=== PATIENT | male | born 1975 | race Caucasian/White ===

== ENCOUNTER 2017-10-26 12:45 | Emergency (ER) | payer SELFPAY ==
[2017-10-26 12:50] VITALS: BP 142/88; PULSE 77; TEMP 98.7; BMI 29.0
--- NOTE | 2017-10-26 12:52 | PDOC ---
History of Present Illness <AlizaBhumi - Last Filed: 10/26/17 16:11> - History of Present Illness Initial Comments: 10/26/17 12:59 Mr. Lozano is a 42 yo male w/ no significant pmh who presents for evaluation of short lived episode of midline sharp, non-radiating chest pain. Patient reports it occurred while he was driving earlier today and lasted for 5-10 seconds. He also developed intermittent nausea with some light headed feeling following this. He reports he did not eat breakfast this morning and attributes his feelings to this. Patient reports strong family history of cardiac problems in mother, father, and uncles and became concerned. He also reports a several month history of intermittent bright red blood on stool and when wiping ( approx. 1x / week). The patient denies shortness of breath and headache. Denies fever, chills, nausea, vomit, diarrhea and constipation. Denies dysuria, frequency, urgency and hematuria. Allergies: NKDA <Sen Gonzales - Last Filed: 10/26/17 17:05> - General Chief Complaint: Chest Pain Stated Complaint: CHEST PAIN Time Seen by Provider: 10/26/17 12:52 Past History <AlizaBhumi - Last Filed: 10/26/17 16:11> - Past Medical History COPD: No - Suicide/Smoking/Psychosocial Hx Smoking History: Current every day smoker Number of Cigarettes Smoked Daily: 20 Information on smoking cessation initiated: No <Sen Gonzales - Last Filed: 10/26/17 17:05> - Past Medical History Allergies/Adverse Reactions: Allergies Allergy/AdvReac Type Severity Reaction Status Date / Time No Known Allergies Allergy Verified 10/26/17 12:50 Review of Systems - Review of Systems Comments:: 10/26/17 12:59 GENERAL/CONSTITUTIONAL: No fever or chills. No weakness. HEAD, EYES, EARS, NOSE AND THROAT: No change in vision. No ear pain or discharge. No sore throat. CARDIOVASCULAR: +Chest pain as described. No SOB. RESPIRATORY: No cough, wheezing, or hemoptysis. GASTROINTESTINAL: +BR Blood on stool as described. Transient nausea, no, vomiting, diarrhea or constipation. GENITOURINARY: No dysuria, frequency, or change in urination. MUSCULOSKELETAL: +Right Upper extremity pain patient reports is chronic. No neck or back pain. SKIN: No rash NEUROLOGIC: No headache, vertigo, loss of consciousness, or change in strength/ sensation. ENDOCRINE: No increased thirst. No abnormal weight change HEMATOLOGIC/LYMPHATIC: No anemia, easy bleeding, or history of blood clots. ALLERGIC/IMMUNOLOGIC: No hives or skin allergy. <Sen Gonzales - Last Filed: 10/26/17 17:05> *Physical Exam - Vital Signs Last Vital Signs Temp Pulse Resp BP Pulse Ox 98.7 F 77 18 142/88 97 10/26/17 12:47 10/26/17 12:47 10/26/17 12:47 10/26/17 12:47 10/26/17 12:47 <Bhumi Abrams - Last Filed: 10/26/17 16:11> - Vital Signs Last Vital Signs Temp Pulse Resp BP Pulse Ox 98.7 F 77 18 142/88 97 10/26/17 12:47 10/26/17 12:47 10/26/17 12:47 10/26/17 12:47 10/26/17 12:47 - Physical Exam Comments: 10/26/17 12:59 GENERAL: Awake, alert, and fully oriented, in no acute distress HEAD: No signs of trauma, normocephalic, atraumatic EYES: PERRLA, EOMI, sclera anicteric, conjunctiva clear ENT: Auricles normal inspection, hearing grossly normal, nares patent, oropharynx clear without exudates. Moist mucosa NECK: Normal ROM, supple, no lymphadenopathy, JVD, or masses LUNGS: +Reproducible TTP in midline chest. No distress, speaks full sentences, clear to auscultation bilaterally HEART: Regular rate and rhythm, normal S1 and S2, no murmurs, rubs or gallops, peripheral pulses normal and equal bilaterally. ABDOMEN: Soft, nontender, normoactive bowel sounds. No guarding, no rebound. No masses EXTREMITIES: +Pain raising RUE above 90 degrees. Normal inspection, Normal range of motion, no edema. No clubbing or cyanosis. NEUROLOGICAL: Cranial nerves II through XII grossly intact. Normal speech, normal gait, no focal sensorimotor deficits SKIN: Warm, Dry, normal turgor, no rashes or lesions noted. RECTAL: +Large skin tag noted. No hemmorrhoids apparent, no tenderness, no stool noted in vaginal vault. <Sen Gonzales - Last Filed: 10/26/17 17:05> Heart Score/ECG Review - History History: Slightly suspicious - Electrocardiogram EKG: Normal - Age Age: </= 45 - Risk Factors Risk Factors Heart Score: Yes Smoking History, Yes Positive family hx of cardiac disease Based on the list above the patient has:: 1-2 risk factors - Troponin Troponin: </= normal limit - Score Heart Score - Total: 1 <Sen Gonzales - Last Filed: 10/26/17 17:05> ED Treatment Course - LABORATORY CBC & Chemistry Diagram: 10/26/17 13:47 10/26/17 13:47 - ADDITIONAL ORDERS Additional order review: Laboratory Results 10/26/17 10/26/17 14:08 13:47 Sodium 136 Potassium 4.1 Chloride 102 Carbon Dioxide 28 Anion Gap 6 L BUN 10 Creatinine 0.8 Creat Clearance w eGFR > 60 Random Glucose 73 L Calcium 8.9 Total Bilirubin 0.4 AST 25 ALT 41 Alkaline Phosphatase 113 Creatine Kinase 303 Creatine Kinase Index 0.5 CK-MB (CK-2) 1.7 Troponin I < 0.02 Total Protein 8.4 H Albumin 4.5 Stool Occult Blood Negative 10/26/17 13:47 RBC 6.06 H MCV 80.1 MCHC 33.1 RDW 13.8 MPV 8.0 Neutrophils % 59.7 Lymphocytes % 34.2 Monocytes % 4.1 Eosinophils % 0.6 Basophils % 1.4 <Bhumi Abrams - Last Filed: 10/26/17 16:11> - LABORATORY CBC & Chemistry Diagram: 10/26/17 13:47 10/26/17 13:47 <Sen Gonzales - Last Filed: 10/26/17 17:05> Medical Decision Making - Medical Decision Making 10/26/17 16:01 Mr. Robert is a 42 yo male w/ pmh as described who presents for evaluation of self limited chest pain. Cardiac workup started with labs, EKG, CXR. EKG regular rate and rhythm, normal access and interval, no ST elevations or depressions. Normal EKG. First troponin negative. Discussed with cardiology who will follow-up outpatient assuming normal 2nd 3 hr troponin. 10/26/17 17:03 2nd troponin negative. Labs grossly wnl as below. Patient given Cardiology, GI, and Ortho follow-up. Appointment made for PCP evaluation. Patient verbalized he will follow through with outpatient evaluations. No concern for acute process. Discharging to home. Laboratory Results - last 24 hr 10/26/17 10/26/17 10/26/17 13:47 13:47 14:08 WBC 13.3 H RBC 6.06 H Hgb 16.1 Hct 48.5 MCV 80.1 MCH 26.6 MCHC 33.1 RDW 13.8 Plt Count 393 MPV 8.0 Absolute Neuts (auto) 8.0 Neutrophils % 59.7 Lymphocytes % 34.2 Monocytes % 4.1 Eosinophils % 0.6 Basophils % 1.4 Nucleated RBC % 0 Sodium 136 Potassium 4.1 Chloride 102 Carbon Dioxide 28 Anion Gap 6 L BUN 10 Creatinine 0.8 Creat Clearance w eGFR > 60 Random Glucose 73 L Calcium 8.9 Total Bilirubin 0.4 AST 25 ALT 41 Alkaline Phosphatase 113 Creatine Kinase 303 Creatine Kinase Index 0.5 CK-MB (CK-2) 1.7 Troponin I < 0.02 Total Protein 8.4 H Albumin 4.5 Stool Occult Blood Negative 10/26/17 16:19 WBC RBC Hgb Hct MCV MCH MCHC RDW Plt Count MPV Absolute Neuts (auto) Neutrophils % Lymphocytes % Monocytes % Eosinophils % Basophils % Nucleated RBC % Sodium Potassium Chloride Carbon Dioxide Anion Gap BUN Creatinine Creat Clearance w eGFR Random Glucose Calcium Total Bilirubin AST ALT Alkaline Phosphatase Creatine Kinase Creatine Kinase Index CK-MB (CK-2) Troponin I < 0.02 Total Protein Albumin Stool Occult Blood <Sen Gonzales - Last Filed: 10/26/17 17:05> *DC/Admit/Observation/Transfer <Bhumi Abrams - Last Filed: 10/26/17 16:11> <Sen Gonzales - Last Filed: 10/26/17 17:05> Diagnosis at time of Disposition: Chest pain Qualifiers: Chest pain type: unspecified Qualified Code(s): R07.9 - Chest pain, unspecified - Discharge Dispostion Disposition: HOME - Referrals Referrals: Joy Richmond MD [Staff Physician] - Blaine Diaz MD [Staff Physician] - Logan Rogers MD [Staff Physician] - Conchis Quigley MD [Staff Physician] - (Made appt for patient with Dr. Lauren Hanley on Nov 16 @ 3:00 pm. ) - Patient Instructions Printed Discharge Instructions: DI for Atypical Chest Pain, How to Quit Smoking Additional Instructions: You were evaluated today in the ER for your chest pain. No concerning findings were found at this time. Please follow-up at already scheduled appointment at [facility] on at 3pm as discussed. We have also provided follow-up information for Gastroenterology and Orthopedics as well as Cardiology. Please follow-up outpatient as discussed and return to ER if any further pain, fever, chills, or other concerning symptoms.
--- NOTE | 2017-10-26 14:06 | PDOC ---
Attending Attestation - Resident Resident Name: Sen Gonzales - ED Attending Attestation I have performed the following: I have examined & evaluated the patient, The case was reviewed & discussed with the resident, I agree w/resident's findings & plan, Exceptions are as noted - HPI HPI: 10/26/17 14:00 42-year-old male patient with no past medical history, but no prior care physician, presents with several complaints. The first complaint is intermittent chest pain for last several months where the symptoms would be midsternal and sharp and last for 5 seconds. Nonexertional. Not associated shortness of breath. Does not radiate. Today, had similar episodes but felt somewhat lightheaded but denies ectopy. Denies diaphoresis. Patient does have a strong family history with the patient's mother had a myocardial infarction at the age of 50. Sister also has MIs. Last stress test was 15 years ago reportedly normal the patient does not have a current doctor. Patient also reports chronic right shoulder pain for last several months which she reports worsens with movement. He does work with a [employer] and states that he feels discomfort. No trauma. Also intermittently endorses intermittent blood per rectum but no abdominal pain. Has never received a colonoscopy for the symptoms. Unclear if this is associated with food. Because of these complaints, came into the ER. - Physicial Exam PE: 10/26/17 14:03 GENERAL: Awake, alert, and fully oriented, in no acute distress HEAD: No signs of trauma EYES: EOMI, sclera anicteric, conjunctiva clear ENT: Auricles normal inspection, hearing grossly normal, nares patent, Moist mucosa NECK: Normal ROM, supple, LUNGS: Breath sounds equal, clear to auscultation bilaterally. No wheezes, and no crackles HEART: Regular rate and rhythm, normal S1 and S2, no murmurs, rubs or gallops ABDOMEN: Soft, nontender, No guarding, no rebound. No masses EXTREMITIES: Normal range of motion, no edema. No clubbing or cyanosis. No cords, erythema, or tenderness NEUROLOGICAL: Cranial nerves II through XII grossly intact. Normal speech, normal gait SKIN: Warm, Dry, normal turgor, no rashes or lesions noted. - Medical Decision Making 10/26/17 14:03 Vital Signs Temp Pulse Resp BP Pulse Ox 98.7 F 77 18 142/88 97 10/26/17 12:47 10/26/17 12:47 10/26/17 12:47 10/26/17 12:47 10/26/17 12:47 The patient's chest pain is atypical. Patient however does have significant risk factors particularly with family history. The patient should receive a troponin and a chest x-ray and a consultation cardiology. If the workup is unremarkable, the patient can be eligible for outpatient echocardiogram and stress test if cardiology is amenable. The patient has lower intermittent GI bleed. Differential includes hemorrhoids, diverticulosis, irritable bowel syndrome, irritable bowel disease, malignancy. We'll need to perform a rectal exam. Also, patient would benefit from a colonoscopy. Colonoscopy should be either done as an inpatient or urgently as an outpatient. We'll also obtain a right shoulder x-ray though I suspect the patient likely has tendonitis or shoulder impingement syndrome. 10/26/17 15:36 CBC, BMP 10/26/17 13:47 10/26/17 13:47 CMP Sodium 136 mmol/L (136-145) 10/26/17 13:47 Potassium 4.1 mmol/L (3.5-5.1) 10/26/17 13:47 Chloride 102 mmol/L (98-107) 10/26/17 13:47 Carbon Dioxide 28 mmol/L (21-32) 10/26/17 13:47 Anion Gap 6 MMOL/L (8-16) L 10/26/17 13:47 BUN 10 mg/dL (7-18) 10/26/17 13:47 Creatinine 0.8 mg/dL (0.55-1.3) 10/26/17 13:47 Creat Clearance w eGFR > 60 (>60) 10/26/17 13:47 Random Glucose 73 mg/dL (74-106) L 10/26/17 13:47 Calcium 8.9 mg/dL (8.5-10.1) 10/26/17 13:47 Total Bilirubin 0.4 mg/dL (0.2-1) 10/26/17 13:47 AST 25 U/L (15-37) 10/26/17 13:47 ALT 41 U/L (13-61) 10/26/17 13:47 Alkaline Phosphatase 113 U/L (45-117) 10/26/17 13:47 Creatine Kinase 303 IU/L (26-308) 10/26/17 13:47 Troponin I < 0.02 ng/ml (0.00-0.05) 10/26/17 13:47 Total Protein 8.4 g/dl (6.4-8.2) H 10/26/17 13:47 Albumin 4.5 g/dl (3.4-5.0) 10/26/17 13:47 Chest xray reviewed, pending official radiology. No acute findings. Shoulder xray reviewed, pending official radiology read. No acute findings. 10/26/17 15:[address] Richmond on [facility] cardiology. Agrees with our plan. If 2nd troponin negative, she can see the patient next week for further cardiology evaluation as an outpatient. Heart Score/ECG Review - History History: Slightly suspicious - Electrocardiogram EKG: Normal - Age Age: </= 45 - Risk Factors Risk Factors Heart Score: Yes Smoking History, Yes Positive family hx of cardiac disease Based on the list above the patient has:: 1-2 risk factors #1 ECG reviewed & interpreted by me at: 12:55 10/26/17 13:59 NSR 75, no std/carli, normal axis, normal intervals, QTC 428 msec
[2017-10-26 14:15] LABS: BASO % 1.4 % (0-2.0); EOS % 0.6 % (0-4.5); HEMATOCRIT 48.5 % (35.4-49); HEMOGLOBIN 16.1 GM/dL (11.7-16.9); LYMPH % 34.2 % (8-40); MCH 26.6 pg (25.7-33.7); MCHC 33.1 g/dl (32.0-35.9); MEAN CELL VOLUME 80.1 fl (80-96); MONO % 4.1 % (3.8-10.2); NEUT % 59.7 % (42.8-82.8); PLATELET COUNT 393 K/MM3 (134-434); RBC 6.06 M/mm3 (4.00-5.60); RDW 13.8 % (11.9-15.9); WHITE BLOOD COUNT 13.3 K/mm3 (4.0-10.0)
[2017-10-26 15:35] LABS: ALBUMIN 4.5 g/dl (3.4-5.0); ALK PHOS 113 U/L (45-117); ANION GAP 6 MMOL/L (8-16); BILIRUBIN,TOTAL 0.4 mg/dL (0.2-1); BLOOD UREA NITROGEN 10 mg/dL (7-18); CALCIUM 8.9 mg/dL (8.5-10.1); CHLORIDE 102 mmol/L (98-107); CO2 28 mmol/L (21-32); CREATININE 0.8 mg/dL (0.55-1.3); GLUCOSE,RANDOM 73 mg/dL (74-106); POTASSIUM 4.1 mmol/L (3.5-5.1); SGOT/AST 25 U/L (15-37); SGPT/ALT 41 U/L (13-61); SODIUM 136 mmol/L (136-145); TOT PROT 8.4 g/dl (6.4-8.2)
--- NOTE | 2017-10-27 15:36 | EKG ---
Test Reason : Blood Pressure : / mmHG Vent. Rate : 075 BPM Atrial Rate : 075 BPM P-R Int : 138 ms QRS Dur : 082 ms QT Int : 384 ms P-R-T Axes : 038 011 031 degrees QTc Int : 428 ms NORMAL SINUS RHYTHM NORMAL ECG NO PREVIOUS ECGS AVAILABLE Confirmed by MD Watson Daniel ([id number]) on 10/27/2017 3:36:16 PM Referred By: Confirmed By:Angelito Watson MD
== END 2017-10-26 17:12 | disposition home or self-care (01) ==
LOC: JER 12:45
DX: R07.9 Chest pain, unspecified (principal)
CPT/HCPCS: 36415; 71046-TC-FY; 73030-TC-RT-FY; 80053; 82272; 82550; 82553; 84484; 85025; 93005; 93010; 99281-25